=== PATIENT | male | born 1935 | race Caucasian/White ===

== ENCOUNTER 2016-05-29 09:56 | Day surgery (SDC) | payer MEDICARE, OTHER ==
[2016-05-29] VITALS (222 sets, daily range): BP systolic 112–139; BP diastolic 40–77; PULSE 55–77; TEMP 97–98.2; O2SAT 91–100
[~2016-05-29] VITALS: Ht 162.6 cm; Wt 62.7 kg
[~2016-05-29 09:56] MED LIST: 00186-0370-20 IH; ASPI325T6 PO; COREG 6.256.25 MG/TA PO; DALIRESP500 MCG PO; LIPITOR 40MG TA40 MG PO; LOPRESSOR 225 MG/TAB PO; MOBIC 7.5MG7.5 MG PO; MOBIC15 MG PO; NORCO 325 MG-7.1 TAB PO; NYSTATIN POWDER15 GM TOP; RT SPIRIVA18 MCG IH; TYLENOL 325MG325 MG PO; TYLENOL SU650 MG/SUP RC; ULTRAM 50MG TAB50 MG PO; ZESTRIL 10MG10 MG PO
[2016-05-29] MEDS ORDERED: XANAX .25M0.25 MG/TA PO (10:38)
[2016-05-29] MEDS ORDERED: SEROQUEL 2525 MG/TAB PO (10:38)
[2016-05-29] MEDS ORDERED: ASPI325T6 PO (10:38)
[2016-05-29 10:39] LABS: MEAN CELL VOLUME 94 fl (80.0-100.0); MEAN CORPUSCULAR HGB CONC 33 g/dl (33.0-37.0); MEAN PLATELET VOLUME 9.9 fl (7.4-10.4); PLATELET COUNT 169 K/mm3 (130-400); RED BLOOD COUNT 3.45 M/mm3 (4.20-5.60); REDCELL DISTRIBUTION WIDTH-CV 13.4 % (11.5-14.5); WHITE BLOOD COUNT 5.1 K/mm3 (4.8-10.8)
[2016-05-29] MEDS ORDERED: CARDIZEM CD 18180 MG PO (10:39)
[2016-05-29] MEDS ORDERED: NORCO 325 MG-7.1 TAB PO (10:39)
[2016-05-29] MEDS ORDERED: PACERONE100 MG PO (10:39)
[2016-05-29] MEDS ORDERED: LASIX 40MG TABL40 MG PO (10:39)
[2016-05-29] MEDS ORDERED: COUMADIN 5MG5 MG/TAB PO (10:40)
[2016-05-29 10:43] LABS: INR 1.2 (0.8-3.0); PROTHROMBIN TIME 13.3 SECONDS (9.7-12.8)
[2016-05-29 10:44] LABS: HEMATOCRIT 32.5 % (42.0-52.0); HEMOGLOBIN 10.8 g/dl (13.5-18.0); MEAN CORPUSCULAR HEMOGLOBIN 31 pg (27.0-31.0)
[2016-05-29 10:48] LABS: CALCIUM 9.3 mg/dL (8.4-10.2); CREATININE, serum 1.26 mg/dL (0.66-1.25); POTASSIUM 3.8 mmol/L (3.4-5.0)
[2016-05-30] VITALS (311 sets, daily range): BP systolic 121–137; BP diastolic 49–64; PULSE 68–87; TEMP 97.1–98.3; O2SAT 93–98
[2016-05-30 06:24] LABS: BASO # 0.1 (0.0-0.2); EOS # 0.1 (0.0-0.7); EOS % 2.2 % (0-4.0); GRAN # 4.4 (1.4-6.5); GRAN % 75.2 % (42.2-75.2); LYMPH # 0.7 (1.2-3.4); LYMPH % 11.6 % (20.0-51.0); MEAN CELL VOLUME 93 fl (80.0-100.0); MEAN CORPUSCULAR HGB CONC 34 g/dl (33.0-37.0); MEAN PLATELET VOLUME 10.2 fl (7.4-10.4); MONO # 0.6 (0.1-0.6); MONO % 9.7 % (1.7-9.3); PLATELET COUNT 163 K/mm3 (130-400); RED BLOOD COUNT 3.46 M/mm3 (4.20-5.60); REDCELL DISTRIBUTION WIDTH-CV 13.3 % (11.5-14.5); WHITE BLOOD COUNT 5.9 K/mm3 (4.8-10.8)
[2016-05-30 06:27] LABS: HEMATOCRIT 32.3 % (42.0-52.0); HEMOGLOBIN 10.9 g/dl (13.5-18.0); MEAN CORPUSCULAR HEMOGLOBIN 32 pg (27.0-31.0)
[2016-05-30 06:36] LABS: CALCIUM 9.3 mg/dL (8.4-10.2); CREATININE, serum 0.98 mg/dL (0.66-1.25); POTASSIUM 3.7 mmol/L (3.4-5.0)
[2016-05-30] MEDS ORDERED: ASPIRIN 81M81 MG/TA2 PO (10:16)
[2016-05-30] MEDS ORDERED: PLAVIX 75MG TAB75 MG PO (11:30)
== END 2016-05-30 11:42 | disposition home or self-care (01) ==
LOC: COL.RAD 09:56 → ICU 14:00 → IMCU 17:59 → COL.RAD 05-30 11:42
PROVIDERS: Internal Medicine Cardiovascular Disease; Internal Medicine Interventional Cardiology
DX: I25.10 Atherosclerotic heart disease of native coronary artery without angina pectoris (principal); Z86.73 Personal history of transient ischemic attack (TIA), and cerebral infarction without residual deficits; I35.1 Nonrheumatic aortic (valve) insufficiency; I36.1 Nonrheumatic tricuspid (valve) insufficiency; I34.0 Nonrheumatic mitral (valve) insufficiency
CPT/HCPCS: OP; C1725; C1769; C1874; C1876; C1887; C1894; C9600; J0583; J1644; J1940; J2250; J3010

== ENCOUNTER 2016-08-14 10:20 | Day surgery (SDC) | payer MEDICARE ==
[~2016-08-14] VITALS: Ht 172.7 cm; Wt 58.0 kg
[2016-08-14] VITALS (10 sets, daily range): BP systolic 122–153; BP diastolic 44–66; PULSE 57–66; TEMP 97.6–98.5
[~2016-08-14 10:20] MED LIST changes: +ASPIRIN 81M81 MG/TA2 PO; +CARDIZEM CD 18180 MG PO; +COUMADIN 5MG5 MG/TAB PO; +LASIX 40MG TABL40 MG PO; +PACERONE100 MG PO; +PLAVIX 75MG TAB75 MG PO; +SEROQUEL 2525 MG/TAB PO; +XANAX .25M0.25 MG/TA PO
[2016-08-14] MEDS ORDERED: LIPITOR 40MG TA40 MG PO (10:53)
[2016-08-14] MEDS ORDERED: PRINIVIL10 MG PO (10:55)
[2016-08-14] MEDS ORDERED: NYSTATIN POWDER15 GM TOP (10:56)
[2016-08-14] MEDS ORDERED: COUMADIN 5MG5 MG/TAB PO (10:59)
[2016-08-14 11:21] LABS: MEAN CELL VOLUME 93 fl (80.0-100.0); MEAN CORPUSCULAR HGB CONC 35 g/dl (33.0-37.0); MEAN PLATELET VOLUME 10.1 fl (7.4-10.4); PLATELET COUNT 156 K/mm3 (130-400); RED BLOOD COUNT 3.05 M/mm3 (4.20-5.60); REDCELL DISTRIBUTION WIDTH-CV 13.3 % (11.5-14.5); WHITE BLOOD COUNT 5.1 K/mm3 (4.8-10.8)
[2016-08-14 11:22] LABS: HEMATOCRIT 28.4 % (42.0-52.0); HEMOGLOBIN 9.9 g/dl (13.5-18.0); MEAN CORPUSCULAR HEMOGLOBIN 32 pg (27.0-31.0)
[2016-08-14 11:27] LABS: INR 1.3 (0.8-3.0); PROTHROMBIN TIME 14.7 SECONDS (9.7-12.8)
[2016-08-14 11:44] LABS: CALCIUM 8.7 mg/dL (8.4-10.2); CREATININE, serum 1.18 mg/dL (0.66-1.25); POTASSIUM 3.9 mmol/L (3.4-5.0)
[2016-08-15 00:21] VITALS: BP 111/49; PULSE 70; TEMP 98.4
[2016-08-15 03:09] VITALS: BP 126/52; PULSE 73; TEMP 99.1
[2016-08-15 07:07] LABS: MEAN CELL VOLUME 95 fl (80.0-100.0); MEAN CORPUSCULAR HGB CONC 34 g/dl (33.0-37.0); MEAN PLATELET VOLUME 10.2 fl (7.4-10.4); PLATELET COUNT 131 K/mm3 (130-400); RED BLOOD COUNT 3.01 M/mm3 (4.20-5.60); REDCELL DISTRIBUTION WIDTH-CV 13.5 % (11.5-14.5); WHITE BLOOD COUNT 7.4 K/mm3 (4.8-10.8)
[2016-08-15 07:14] LABS: INR 1.3 (0.8-3.0); PROTHROMBIN TIME 14.6 SECONDS (9.7-12.8)
[2016-08-15 07:15] LABS: HEMATOCRIT 28.5 % (42.0-52.0); HEMOGLOBIN 9.6 g/dl (13.5-18.0); MEAN CORPUSCULAR HEMOGLOBIN 32 pg (27.0-31.0)
[2016-08-15 07:22] LABS: CALCIUM 8.8 mg/dL (8.4-10.2); CREATININE, serum 1.14 mg/dL (0.66-1.25); POTASSIUM 3.9 mmol/L (3.4-5.0)
[2016-08-15 07:48] VITALS: BP 138/55; PULSE 76; TEMP 98.5
== END 2016-08-15 14:00 ==
LOC: EUO 10:20 → COL.CAR 10:45 → MEDICAL 15:30 → EUO 08-15 14:00
PROVIDERS: Internal Medicine Cardiovascular Disease
DX: I25.5 Ischemic cardiomyopathy (principal); I48.91 Unspecified atrial fibrillation; I25.10 Atherosclerotic heart disease of native coronary artery without angina pectoris; Z95.5 Presence of coronary angioplasty implant and graft; Z95.818 Presence of other cardiac implants and grafts; Z98.61 Coronary angioplasty status; I69.854 Hemiplegia and hemiparesis following other cerebrovascular disease affecting left non-dominant side; I10 Essential (primary) hypertension; E43 Unspecified severe protein-calorie malnutrition; R63.4 Abnormal weight loss; I08.3 Combined rheumatic disorders of mitral, aortic and tricuspid valves; F17.220 Nicotine dependence, chewing tobacco, uncomplicated; Z79.01 Long term (current) use of anticoagulants
CPT/HCPCS: OP; C1769; C1882; C1887; C1894; C1895; C1898; C1900; J0690; J2250; J3010; J7030; J7050; Q9967

== ENCOUNTER 2018-09-08 14:55 | Inpatient (IN) | payer MEDICARE ==
[~2018-09-08] VITALS: Ht 175.3 cm; Wt 73.0 kg
[~2018-09-08 14:55] MED LIST changes: +PRINIVIL10 MG PO
--- NOTE | 2018-09-08 15:30 | NUR ---
arrived per WC accompaniened by daughter and admitted into room 326, assisted out of clothes and into gown, has INT to right hand without redness or swelling, full admission assessment completed, see intervention for further info, at bedside now
[2018-09-08 15:38] VITALS: BP 109/38; PULSE 65; TEMP 98.1
[2018-09-08] MEDS ORDERED: COUMADIN4 MG PO (15:49)
--- NOTE | 2018-09-08 16:30 | NUR ---
SURESH Burt in and assessment completed, resting in bed, first IV antibiotic started, family remains at bedside
--- NOTE | 2018-09-08 17:48 | NUR ---
to radiology per WC for chest xray
--- NOTE | 2018-09-08 18:05 | NUR ---
returned from radiology, cardiopulmonary in to obtain EKG, telemetry on
--- NOTE | 2018-09-08 18:30 | NUR ---
mccormick catheter placed, a little difficulty getting catheter to pass through urethra and had scant amount bleeding around meatus when completed, clear yellow urine returned and he did tolerate well, lab in to draw FENA, clear liquid tray ordered, at bedside
--- NOTE | 2018-09-08 18:51 | NUR ---
spoke with Dr White and informed of consult, gave info regarding INT and Vitamin K and new order received, [place] CARDENAS notified of only given 5mg of vitamin K
[2018-09-08 19:03] LABS: HYALINE CAST >12 /lpf; PH 5 (5-8); SQUAMOUS EPITHELIAL 0-2 /hpf; URINE APPEARANCE Hazy; URINE BACTERIA None Seen /hpf; URINE BILIRUBIN Negative (NEGATIVE); URINE BLOOD 2+ (NEGATIVE); URINE COLOR Yellow; URINE GLUCOSE Negative (NEGATIVE); URINE KETONE Negative (NEGATIVE); URINE LEUKOCYTE ESTERASE 1+ (NEGATIVE); URINE NITRATE Negative (NEGATIVE); URINE PROTEIN(semi-quant) Negative (NEGATIVE); URINE UROBILINOGEN Negative (NEGATIVE)
--- NOTE | 2018-09-08 19:12 | NUR ---
bedside shift report given to JOSEPHINE Becker
[2018-09-08 19:24] LABS: FRACTIONAL EXCRETION OF NA+ 0.8 %
[2018-09-08 19:33] VITALS: BP 115/41; PULSE 66; TEMP 98
[2018-09-08 19:41] LABS: COLLECTION METHOD CLEAN CATCH
[2018-09-08 23:30] VITALS: BP 121/55; PULSE 72; TEMP 98.2
[2018-09-09 03:18] VITALS: BP 123/52; PULSE 66; TEMP 97.4
--- NOTE | 2018-09-09 07:45 | NUR ---
Report from Rosita MAURICIO
[2018-09-09 07:49] VITALS: BP 124/48; PULSE 62; TEMP 97.6
--- NOTE | 2018-09-09 08:56 | NUR ---
Initial visit; Patient resting, Professional Golf Tournament Player spoke with family, letting them know spiritual care is available and offered God's blessings to patient and family.
--- NOTE | 2018-09-09 09:01 | NUR ---
PATIENT RESTING IN BED, DENIES PAIN OR NEEDS. FAMILY AT BEDSIDE.
[2018-09-09 10:24] LABS: BASO % 0.1 % (0.0-2.0); GRAN # 8.7 (1.4-6.5); GRAN % 88.3 % (42.2-75.2); LYMPH # 0.6 (1.2-3.4); LYMPH % 6.2 % (20.0-51.0); MEAN CELL VOLUME 95 fl (80.0-100.0); MEAN CORPUSCULAR HGB CONC 34 g/dl (33.0-37.0); MEAN PLATELET VOLUME 10.5 fl (7.4-10.4); MONO # 0.5 (0.1-0.6); MONO % 4.9 % (1.7-9.3); PLATELET COUNT 177 K/mm3 (130-400); RED BLOOD COUNT 3.02 M/mm3 (4.20-5.60); REDCELL DISTRIBUTION WIDTH-CV 13.4 % (11.5-14.5)
[2018-09-09 10:30] LABS: HEMATOCRIT 28.7 % (42.0-52.0); HEMOGLOBIN 9.7 g/dl (13.5-18.0); INR 2.5 (0.8-3.0); MEAN CORPUSCULAR HEMOGLOBIN 32 pg (27.0-31.0); PROTHROMBIN TIME 30.5 SECONDS (9.7-12.8)
[2018-09-09 10:32] LABS: CALCIUM 8.3 mg/dL (8.4-10.2); CREATININE, serum 1.33 (0.66-1.25)
[2018-09-09 11:19] VITALS: BP 109/38; PULSE 71; TEMP 98.3
--- NOTE | 2018-09-09 15:01 | NUR ---
SW met with patient to discuss discharge planning. Patient lives at home with his . Patient's daughter and are CNAs/CMAs and care for him. PT did recommend possible home health but patient and family is not interested in utilizing those services. Patient's PCP is Dr Anderson and he obtains prescriptions from [facility] in [place]. Patient does not use any DME or home health services. Patient does have a DPOA. SW requested a copy from [facility]. Patient plans to return home with his and daughter. No discharge needs at this time.
[2018-09-09 15:39] VITALS: BP 99/52; PULSE 72; TEMP 97.7
--- NOTE | 2018-09-09 19:06 | NUR ---
report to ariana BURTON.
[2018-09-09 19:46] VITALS: BP 99/50; PULSE 72; TEMP 98.6
--- NOTE | 2018-09-09 20:52 | NUR ---
Pt. sitting up in bed with family at bedside. Pt. is A&OX3, assessment complete. IV to rt. forearm patent, IV fluids infusing per orders. Pt.'s family reported that the pt. was having a lot of discofort with the catheter. THERESA Ho notified. Orders to discontinue the Parisi catheter. 10 CC removed from ballon, ballon intact. Pt. tolerated well. Pt. then got up to the bathroom with assist from family and urinated. Pt. family also voices that pt. c/o pain to lt. heel. Heel is not red and skin is intact. Heels floated for precautionary measures and to improve comfort. Pt. and family deny pain or other needs at this time. Call light within reach.
[2018-09-10 00:32] VITALS: BP 85/50; PULSE 69; TEMP 98.2
[2018-09-10 02:27] VITALS: BP 97/55; PULSE 58; TEMP 98.2
--- NOTE | 2018-09-10 06:50 | NUR ---
report from Jam BURTON.
[2018-09-10 08:17] VITALS: BP 107/49; PULSE 60; TEMP 97.9
--- NOTE | 2018-09-10 08:29 | NUR ---
PT RESTING IN BED, FAMILY AT BEDSIDE PROVIDING SUPPORT AND CARE. PT EATING AND DRINKING NO NAUSEA/VOMITING. ASSESSMENTS COMPLTE, AM MEDS GIVEN ORDERED.
[2018-09-10 12:11] LABS: BASO % 0.2 % (0.0-2.0); GRAN % 87.4 % (42.2-75.2); LYMPH # 0.7 (1.2-3.4); LYMPH % 5.3 % (20.0-51.0); MEAN CELL VOLUME 97 fl (80.0-100.0); MEAN CORPUSCULAR HGB CONC 33 g/dl (33.0-37.0); MEAN PLATELET VOLUME 10.1 fl (7.4-10.4); MONO # 0.8 (0.1-0.6); MONO % 6.3 % (1.7-9.3); PLATELET COUNT 199 K/mm3 (130-400); RED BLOOD COUNT 2.64 M/mm3 (4.20-5.60); REDCELL DISTRIBUTION WIDTH-CV 13.9 % (11.5-14.5)
[2018-09-10 12:13] LABS: HEMATOCRIT 25.7 % (42.0-52.0); HEMOGLOBIN 8.4 g/dl (13.5-18.0); INR 1.9 (0.8-3.0); MEAN CORPUSCULAR HEMOGLOBIN 32 pg (27.0-31.0); PROTHROMBIN TIME 23.2 SECONDS (9.7-12.8)
[2018-09-10 12:18] LABS: CREATININE, serum 1.17 (0.66-1.25); POTASSIUM 3.9 mmol/L (3.4-5.0)
[2018-09-10 12:21] VITALS: BP 104/38; PULSE 81; TEMP 97.8
[2018-09-10] MEDS ORDERED: CIPRO 500MG TA500 MG PO (12:40)
[2018-09-10] MEDS ORDERED: FLAGYL500 MG PO (12:41)
[2018-09-10] MEDS ORDERED: PACERONE200 MG PO (12:44)
[2018-09-10] MEDS ORDERED: CARDIZEM CD 12120 MG PO (12:45)
[2018-09-10] MEDS ORDERED: NORCO 325 MG-51 TAB PO (12:50)
[2018-09-10] MEDS ORDERED: PREDNISONE10 MG PO (14:23)
--- NOTE | 2018-09-10 15:01 | NUR ---
DISCHARGE INSTRUCTIONS REVIEWED WITH PT AND CAREGIVERS. QUESTIONS ANSWERED, MICHELLE JIMÉNEZ REINFORCED IMPORTANCE OF FOLOW UP LABS TO BE DRAWN ON THURSDAY. ALL VERBALIZED UNDERSTANDING. PT TO FRONT WITH STAFF BY WHEEL CHAIR.
== END 2018-09-10 15:04 | disposition home or self-care (01) | DRG 394 ==
LOC: SURG 14:55
PROVIDERS: Nurse Practitioner Family; Physician Assistant; ADMIT Internal Medicine
DX: K35.80 Unspecified acute appendicitis (principal); N17.9 Acute kidney failure, unspecified; J44.9 Chronic obstructive pulmonary disease, unspecified; I10 Essential (primary) hypertension; I48.0 Paroxysmal atrial fibrillation; M19.90 Unspecified osteoarthritis, unspecified site; I25.5 Ischemic cardiomyopathy; I65.22 Occlusion and stenosis of left carotid artery; E78.5 Hyperlipidemia, unspecified; I25.10 Atherosclerotic heart disease of native coronary artery without angina pectoris; D64.9 Anemia, unspecified; F41.9 Anxiety disorder, unspecified; F32.9 Major depressive disorder, single episode, unspecified; B35.1 Tinea unguium; F17.290 Nicotine dependence, other tobacco product, uncomplicated; Z79.01 Long term (current) use of anticoagulants; Z79.82 Long term (current) use of aspirin; Z88.0 Allergy status to penicillin; Z86.73 Personal history of transient ischemic attack (TIA), and cerebral infarction without residual deficits; Z95.5 Presence of coronary angioplasty implant and graft; Z95.810 Presence of automatic (implantable) cardiac defibrillator
CPT/HCPCS: 99223-AI; 99233-AI; 99239; A4216; A4314; J0692; J7030; J7512

== ENCOUNTER 2018-09-14 20:53 | Inpatient (IN) | payer MEDICARE ==
[~2018-09-14] VITALS: Ht 172.7 cm; Wt 68.5 kg
[~2018-09-14 20:53] MED LIST changes: +CARDIZEM CD 12120 MG PO; +CIPRO 500MG TA500 MG PO; +COUMADIN4 MG PO; +FLAGYL500 MG PO; +NORCO 325 MG-51 TAB PO; +PACERONE200 MG PO; +PREDNISONE10 MG PO
[2018-09-14 21:21] LABS: BASO % 0.1 % (0.0-2.0); EOS # 0.3 (0.0-0.7); EOS % 2.1 % (0-4.0); GRAN # 10.5 (1.4-6.5); GRAN % 72.5 % (42.2-75.2); LYMPH # 1.9 (1.2-3.4); LYMPH % 12.9 % (20.0-51.0); MEAN CELL VOLUME 97 fl (80.0-100.0); MEAN CORPUSCULAR HGB CONC 33 g/dl (33.0-37.0); MEAN PLATELET VOLUME 9.7 fl (7.4-10.4); MONO # 1.4 (0.1-0.6); MONO % 9.9 % (1.7-9.3); PLATELET COUNT 297 K/mm3 (130-400); RED BLOOD COUNT 2.84 M/mm3 (4.20-5.60)
[2018-09-14 21:26] LABS: HEMATOCRIT 27.4 % (42.0-52.0); HEMOGLOBIN 9.1 g/dl (13.5-18.0); MEAN CORPUSCULAR HEMOGLOBIN 32 pg (27.0-31.0)
[2018-09-14 21:29] LABS: BILIRUBIN,TOTAL 0.3 mg/dL (0.0-1.0); CALCIUM 8.2 mg/dL (8.4-10.2); CREATININE, serum 1.29 (0.66-1.25); POTASSIUM 4.1 mmol/L (3.4-5.0); TOTAL PROTEIN 5.8 gm/dL (6.4-8.2)
[2018-09-14 21:32] LABS: PROTHROMBIN TIME 48.3 SECONDS (9.7-12.8)
[2018-09-14 22:30] LABS: COLLECTION METHOD CLEAN CATCH
[2018-09-14 22:36] LABS: PH 5 (5-8); SQUAMOUS EPITHELIAL 0-2 /hpf; URINE APPEARANCE Clear; URINE BACTERIA None Seen /hpf; URINE BILIRUBIN Negative (NEGATIVE); URINE BLOOD Negative (NEGATIVE); URINE COLOR Yellow; URINE GLUCOSE Negative (NEGATIVE); URINE KETONE Negative (NEGATIVE); URINE LEUKOCYTE ESTERASE Trace (NEGATIVE); URINE NITRATE Negative (NEGATIVE); URINE PROTEIN(semi-quant) Negative (NEGATIVE); URINE RBC 0-2 /hpf; URINE UROBILINOGEN Negative (NEGATIVE)
[2018-09-15] VITALS (7 sets, daily range): BP systolic 105–130; BP diastolic 40–52; PULSE 62–75; TEMP 97.7–99.3
[2018-09-15] MEDS ORDERED: NORCO 325 MG-51 TAB PO (00:20)
[2018-09-15] MEDS ORDERED: CARDIZEM CD 12120 MG PO (00:22)
--- NOTE | 2018-09-15 00:40 | NUR ---
Report received from ER nurse. Patient to room 344 via ER cart and ambulates with assist to the bed. and daughter present and answer admission assessment questions. Patient drowsy and dozes off and on. declines having bed alarm on. States he won't get up and he'll tell them when he needs to. Reviewed safety and if patient unsteady or dizzy call staff for assist. IV ABT, lasix, by mouth vit K, and dilaudid all reviwed and given. Patient awakens to touch and voice. Patient unable to state month and year but states in [place] at the hospital.
--- NOTE | 2018-09-15 02:37 | NUR ---
Patient rests on right side with eyes closed. Respirations with ease.
--- NOTE | 2018-09-15 03:02 | NUR ---
Patient resting with eyes closed. Respirations with ease.
--- NOTE | 2018-09-15 05:00 | NUR ---
Patient has been up to the bathroom with and has voided 3 times. Patient states "little bit" of pain but denies need for pain med. Rests in bed.
--- NOTE | 2018-09-15 06:18 | NUR ---
Dr. Nelson notified of cardiology consult.
[2018-09-15 06:19] LABS: INR 3.2 (0.8-3.0); PROTHROMBIN TIME 39.1 SECONDS (9.7-12.8)
--- NOTE | 2018-09-15 07:51 | NUR ---
Patient up to the bathroom this am. Voided. He is alert & oriented. Family at bedside. Complaints of pain to RLQ. Medication per orders. Clear liquid tray ordered, he denies nausea. Vss on room air. Tele on. Ivf to Lac. Will monitor.
--- NOTE | 2018-09-15 11:46 | NUR ---
NIKHIL rounded with the team then met with the patient, his daughter, and his Maya (DPOA-HC). The pt lives in [place] with Maya. MARGE responded to the following questions. The pt does not have any DME is independent with ADLs. The pt's PCP is Dr. Anderson and he receives his medication from [facility]. The pt does have advanced directives in the EMR. SW will continue to follow to discharge recommendations. Maya SAENZ- p#
--- NOTE | 2018-09-15 13:29 | NUR ---
Patient sitting up in bed. Medicated with Antibiotics per orders & for pain per orders. Pain to his abdomen, but he is wanting to use the least amount of pain medication as possible.
--- NOTE | 2018-09-15 18:14 | NUR ---
Patient resting in bed, family at bedside. He tolerated clears for dinner. Rates pain 8/10, but denies the need for medication. Hs meds given with a ensure, per patient routine. Iv to Lac, IVF per orders. Will report off to night nurse
--- NOTE | 2018-09-15 18:55 | NUR ---
Report received from Sandra BURTON. Patient rests in bed with eyes closed. Respirations with ease.
--- NOTE | 2018-09-15 21:00 | NUR ---
IV antibiotic reviewed and given. Patient oriented x 4 but not to Month and year-normal for him per family. Patient up standby assist to the bathroom and voids then rests back in bed. Reports some achy RLQ pain but declines pain med.
--- NOTE | 2018-09-16 02:39 | NUR ---
Patient has been resting with eyes closed. Respirations with ease.
[2018-09-16 03:18] VITALS: BP 116/50; PULSE 66; TEMP 98.6
--- NOTE | 2018-09-16 04:45 | NUR ---
Patient resting with eyes closed. Respirations with ease.
[2018-09-16 06:05] LABS: MEAN CELL VOLUME 96 fl (80.0-100.0); MEAN CORPUSCULAR HGB CONC 33 g/dl (33.0-37.0); MEAN PLATELET VOLUME 10.2 fl (7.4-10.4); PLATELET COUNT 255 K/mm3 (130-400); RED BLOOD COUNT 2.42 M/mm3 (4.20-5.60); REDCELL DISTRIBUTION WIDTH-CV 14.1 % (11.5-14.5)
[2018-09-16 06:06] LABS: HEMATOCRIT 23.1 % (42.0-52.0); HEMOGLOBIN 7.7 g/dl (13.5-18.0); MEAN CORPUSCULAR HEMOGLOBIN 32 pg (27.0-31.0)
[2018-09-16 06:09] LABS: INR 1.7 (0.8-3.0); PROTHROMBIN TIME 19.8 SECONDS (9.7-12.8)
[2018-09-16 06:16] LABS: BAND 3 % (0-10); CALCIUM 7.6 mg/dL (8.4-10.2); CREATININE, serum 1.07 (0.66-1.25); EOSINOPHIL 2 % (0-4); LYMPHOCYTE 12 % (20.0-51.0); METAMYELOCYTE 1 % (0-0); NEUTROPHILS 77 % (42.0-75.2); POTASSIUM 3.5 mmol/L (3.4-5.0)
[2018-09-16 06:17] LABS: PLATELET ESTIMATE NORMAL (NORMAL)
--- NOTE | 2018-09-16 08:29 | NUR ---
Assessment completed, alert/oriented, vital signs stable, RUQ pain reported /, he refused pain medication at this time, abdomen soft and BS +, reports passing flatus, INR down to 1.7 today, heart RRR/ paced on tele, lungs CTA/ no resp.difficulty, patient on PO lasix and voiding urine well, family present in the room, denies other needs at this time
[2018-09-16 08:50] VITALS: BP 122/48; PULSE 67; TEMP 98.6
[2018-09-16 11:57] VITALS: BP 118/50; PULSE 66; TEMP 98.9
[2018-09-16 15:09] VITALS: BP 123/51; PULSE 69; TEMP 98.9
[2018-09-16 19:40] VITALS: BP 130/50; PULSE 72; TEMP 98
--- NOTE | 2018-09-16 20:00 | NUR ---
PT RESTING IN BED. AND DAUGHTER STAYING WITH PT. PT HAS DEMENTIA. ANSWERS SOME QUESTIONS CORRECTLY. KNOWS FAMILY. IV TO LT AC. GOOD BLOOD RETURN AND FLUSH. SITE RED AND EDEAMTOUS FROM LAST INFILTRATION. FAMILY REQUESTED PT GET PAIN MEDICAITON FOR GENERALIZED PAIN. PT RELATES BACK AND KNEES HURT SOME. SEE MAR FOR PAIN MED GIVEN. FAMILY TAKES PT TO BR TO VOID. NO INCONTINENCY.
[2018-09-16 23:57] VITALS: BP 114/45; PULSE 62; TEMP 98.3
[2018-09-17 03:53] VITALS: BP 128/78; PULSE 65; TEMP 98.4
--- NOTE | 2018-09-17 05:00 | NUR ---
LAB HERE TO DRAW BLOOD. STAYED WITH PT THOUGH THE NIGHT. VERY SUPPORTIVE. PT SLEPT WELL. PT AWAKE CALM W/O COMPLAINTS.
[2018-09-17 05:40] LABS: MEAN CELL VOLUME 96 fl (80.0-100.0); MEAN CORPUSCULAR HGB CONC 33 g/dl (33.0-37.0); MEAN PLATELET VOLUME 9.8 fl (7.4-10.4); PLATELET COUNT 237 K/mm3 (130-400); RED BLOOD COUNT 2.25 M/mm3 (4.20-5.60)
[2018-09-17 05:43] LABS: HEMATOCRIT 21.6 % (42.0-52.0); HEMOGLOBIN 7.2 g/dl (13.5-18.0); MEAN CORPUSCULAR HEMOGLOBIN 32 pg (27.0-31.0)
[2018-09-17 05:58] LABS: CALCIUM 7.6 mg/dL (8.4-10.2)
[2018-09-17 06:01] LABS: INR 1.4 (0.8-3.0)
[2018-09-17 07:42] LABS: EOSINOPHIL 3 % (0-4); LYMPHOCYTE 10 % (20.0-51.0); NEUTROPHILS 84 % (42.0-75.2)
[2018-09-17 07:43] LABS: ANISOCYTOSIS 1+; HYPOCHROMIA 2+; PLATELET ESTIMATE NORMAL (NORMAL)
--- NOTE | 2018-09-17 08:58 | NUR ---
Assessment completed, alert/oriented, vital signs stable, reprots moderate pain but continues to refuse/ deny needs for medication or intervention, reports abdomen is feeling somewhat better, denies any N/V, tolerating CL well and would like to advance diet/ I expalined we can discuss this with the physician today, heart RRR/ paced, diruesing well on lasix, Potassium contineud to trend down with diruretic/ 3.0 this morning and replacing per protocol, lungs CTA/ diminished / he is a current everyday smoker, his left arm IV site has infiltrated and I have removed it and place pressure wrap for swelling/ started a new IV to right forearm, present at bedside, they deny other needs at this time
[2018-09-17 09:02] VITALS: BP 135/53; PULSE 69; TEMP 98.9
[2018-09-17 11:49] VITALS: BP 122/52; PULSE 59; TEMP 98.2
[2018-09-17 15:21] VITALS: BP 121/48; PULSE 64; TEMP 98.6
--- NOTE | 2018-09-17 19:33 | NUR ---
LAST BAG POTASSIUM INFUSING SLOWLY D/T IV DISCOMFORT. IV SITE W/O REDNESS OR SWELLING. FAMILY AT BEDSIDE. VERY SUPPORTIVE.
[2018-09-17 21:00] VITALS: BP 107/48; PULSE 61; TEMP 98.5
--- NOTE | 2018-09-17 21:54 | NUR ---
PT RESTING IN BED. NO DISTRESS. RELATED THEY TOOK A WALK IN THE SEALS. PT MANOJ WELL. DISORIENTED AT TIMES. KNOWS FAMILY AND THAT HE IS IN THE HOSPITAL. LT EYE ORBIT LESS BRUISED. DENIES ANY PAIN AT THIS TIME.
[2018-09-18] VITALS (7 sets, daily range): BP systolic 109–137; BP diastolic 41–59; PULSE 60–68; TEMP 98.1–98.8
--- NOTE | 2018-09-18 01:20 | NUR ---
POTAASIUM NOW 3.9.
--- NOTE | 2018-09-18 02:05 | NUR ---
PER K+PROTOCOL. GAVE 20MEQ EFFER K+ IN JUICE. WILL RECHECK LEVEL IN AM.
[2018-09-18 06:37] LABS: BASO % 0.1 % (0.0-2.0); EOS # 0.2 (0.0-0.7); EOS % 2.1 % (0-4.0); GRAN # 7.3 (1.4-6.5); GRAN % 71.7 % (42.2-75.2); LYMPH # 1.4 (1.2-3.4); LYMPH % 13.4 % (20.0-51.0); MEAN CELL VOLUME 97 fl (80.0-100.0); MEAN CORPUSCULAR HGB CONC 33 g/dl (33.0-37.0); MEAN PLATELET VOLUME 10.2 fl (7.4-10.4); MONO # 1.2 (0.1-0.6); MONO % 11.7 % (1.7-9.3); PLATELET COUNT 246 K/mm3 (130-400); RED BLOOD COUNT 2.32 M/mm3 (4.20-5.60); REDCELL DISTRIBUTION WIDTH-CV 14.2 % (11.5-14.5)
[2018-09-18 06:46] LABS: HEMATOCRIT 22.6 % (42.0-52.0); HEMOGLOBIN 7.4 g/dl (13.5-18.0); MEAN CORPUSCULAR HEMOGLOBIN 32 pg (27.0-31.0)
[2018-09-18 06:55] LABS: CALCIUM 7.7 mg/dL (8.4-10.2); CREATININE, serum 0.98 (0.66-1.25); POTASSIUM 4.1 mmol/L (3.4-5.0)
--- NOTE | 2018-09-18 07:15 | NUR ---
Report received from JOSEPHINE Robin. Pt in bed resting with at bedside. Denies needs, ordered breakfast will continue to monitor.
--- NOTE | 2018-09-18 08:30 | NUR ---
Assessment charted. Pt doing well. Tolerated breakfast well. UP ambulating hallways with . INT to RFA. Denies needs, will continue to monitor.
--- NOTE | 2018-09-18 17:52 | NUR ---
Pt has done well today. Up ambulating with around hallways often. Pt's mouth and tongue are white and have hairy appearance, called Dr. Coffey for orders for oral nystatin and provided. Pt denies pain. remains at bedside diligent and handling care of patient. Will give bedside shift report to nightshift nurse who will resume care.
--- NOTE | 2018-09-18 19:40 | NUR ---
Patient reports painful legs, not new for patient. Medicated with [place] 5/325mg 1 tab at this time. Noted white tongue, encouraged oral care with brushing of the tongue.
--- NOTE | 2018-09-18 20:30 | NUR ---
Medicated with HS meds, reports pain med has helped decrease leg discomfort. Has fading bruise to left eye. SL to right forearm, no redness or swelling noted. Patient does the Nystatin swish and spit for the thrush on his tongue, he denies pain in mouth.
--- NOTE | 2018-09-19 02:14 | NUR ---
Patient and spouse ambulating in hallway. Gait steady.
[2018-09-19 04:40] VITALS: BP 131/60; PULSE 59; TEMP 98.1
--- NOTE | 2018-09-19 04:50 | NUR ---
Patient awake, voids and back to bed. IV antibiotic given without problem to right forearm site. No concerns offered from patient or his spouse.
--- NOTE | 2018-09-19 05:50 | NUR ---
Patient and spouse ambulate in hallway without problem.
[2018-09-19 06:21] LABS: BASO % 0.4 % (0.0-2.0); EOS # 0.2 (0.0-0.7); EOS % 2.4 % (0-4.0); GRAN # 6.6 (1.4-6.5); GRAN % 68.9 % (42.2-75.2); LYMPH # 1.4 (1.2-3.4); LYMPH % 14.5 % (20.0-51.0); MEAN CELL VOLUME 94 fl (80.0-100.0); MEAN CORPUSCULAR HGB CONC 34 g/dl (33.0-37.0); MONO # 1.3 (0.1-0.6); MONO % 13.1 % (1.7-9.3); PLATELET COUNT 277 K/mm3 (130-400)
[2018-09-19 06:23] LABS: HEMATOCRIT 24.5 % (42.0-52.0); HEMOGLOBIN 8.2 g/dl (13.5-18.0); MEAN CORPUSCULAR HEMOGLOBIN 32 pg (27.0-31.0)
--- NOTE | 2018-09-19 08:05 | NUR ---
Pt AAOx2, pt confused on situation and month/year. Pt's family member at bedside. Call light in reach, meal offered and accepted.
[2018-09-19 08:32] VITALS: BP 116/40; PULSE 65; TEMP 99
[2018-09-19 11:29] VITALS: BP 116/47; PULSE 63; TEMP 98.9
[2018-09-19 16:03] VITALS: BP 129/50; PULSE 64; TEMP 98.6
[2018-09-19 19:44] VITALS: BP 106/44; PULSE 61; TEMP 98.6
--- NOTE | 2018-09-19 20:00 | NUR ---
WALKING IN HALLS WITH . VERY SUPPORTIVE. PT VOIDING 200-300CC Q1-2HR CLEAR YELLOW. PT MORE CONVERSIVE AND ORIENTED TONIGHT. HAVING KNEE DISCOMFORT. TOOK NORCO RECENTLY.
[2018-09-19 23:25] VITALS: BP 112/54; PULSE 60; TEMP 98.4
[2018-09-20 04:33] VITALS: BP 125/46; PULSE 67; TEMP 98.9
--- NOTE | 2018-09-20 04:40 | NUR ---
PT AWAKE. ASSISTING PT TO BR. VOIDING LG AMOUNT OF URINE THROUGH THE NIGHT. NOW AMBULATING IN SEALS WITH . NO COMPLAINTS AT THIS TIME.
[2018-09-20 07:55] VITALS: BP 124/50; PULSE 63; TEMP 98.3
[2018-09-20] MEDS ORDERED: NYSTATIN OR100 MU/ML PO (09:09)
[2018-09-20] MEDS ORDERED: OMNICEF 300MG300 MG PO (09:10)
--- NOTE | 2018-09-20 09:10 | NUR ---
The patient is to discharge back home with his today, 09/20. SW presented and explained the IM form to the patient's . The patient's verbalized understanding, signed, and she was provided a copy. No additional needs at this time.
--- NOTE | 2018-09-20 09:58 | NUR ---
PATIENT DISCHARGING HOME VIA WHEELCHAIR TO PERSONAL VEHICLE WITH FAMILY. GAVE DISCHARGE INSTRUCTIONS AND FOLLOW UP APT. ANSWERED ALL QUESTIONS/CONCERNS. DC'D IV SITE AND COVERED WITH BANDAID. PATIENT DISCHARGED.
== END 2018-09-20 09:58 | disposition home or self-care (01) | DRG 394 ==
LOC: COL.ER 20:53 → SURG 23:19
PROVIDERS: Emergency Medicine; Internal Medicine; Nurse Practitioner Family; Physician Assistant; ADMIT Hospitalist
DX: K36 Other appendicitis (principal); N39.0 Urinary tract infection, site not specified; R64 Cachexia; N17.9 Acute kidney failure, unspecified; I10 Essential (primary) hypertension; E78.5 Hyperlipidemia, unspecified; I25.10 Atherosclerotic heart disease of native coronary artery without angina pectoris; I65.22 Occlusion and stenosis of left carotid artery; I48.0 Paroxysmal atrial fibrillation; J44.9 Chronic obstructive pulmonary disease, unspecified; Z66 Do not resuscitate; F32.9 Major depressive disorder, single episode, unspecified; D64.9 Anemia, unspecified; I25.5 Ischemic cardiomyopathy; S00.83XA Contusion of other part of head, initial encounter; W18.30XA Fall on same level, unspecified, initial encounter; Y92.009 Unspecified place in unspecified non-institutional (private) residence as the place of occurrence of the external cause; Z68.24 Body mass index [BMI] 24.0-24.9, adult; F17.210 Nicotine dependence, cigarettes, uncomplicated; Z79.01 Long term (current) use of anticoagulants; Z79.82 Long term (current) use of aspirin; Z95.5 Presence of coronary angioplasty implant and graft; Z95.810 Presence of automatic (implantable) cardiac defibrillator; Z86.73 Personal history of transient ischemic attack (TIA), and cerebral infarction without residual deficits; Z88.0 Allergy status to penicillin
CPT/HCPCS: 99223-AI; 99232-AI; 99239; A4216; J0692; J1170; J1650; J1940; J2270; J3010; J3480; J7030; Q9967